=== PATIENT | female | born 1955 | race Caucasian/White ===

== ENCOUNTER → 2018-07-10 07:40 | Outpatient (CLI) | payer OTHER, SELFPAY ==
--- NOTE | 2018-07-10 | DI.US.S_ITS ---
PROCEDURE: US SOFT TISSUE HEAD AND NECK INDICATIONS: LOCALIZED NECK LUMP TECHNIQUE: Real-time scanning was performed of the neck region of interest, with image documentation. COMPARISON: None. FINDINGS: Ill-defined, hypoechoic subcutaneous soft tissue mass visualized corresponding to the palpable left neck abnormality measuring 0.7 x 0.9 x 0.7 cm. Mild peripheral blood flow seen. IMPRESSION: Nonspecific subcutaneous soft tissue mass. Differential includes both benign and malignant etiology. Consider dermatology consultation. Dictated by: Shad SCOTT Interpreted: Eliud Diaz MD on 07/10/2018 at 14:57 Approved by: Eliud Diaz M.D. on 07/10/2018 at 17:54
== END ==
PROVIDERS: PCP Family Medicine; Visit Provider Family Medicine
DX: R22.1 Localized swelling, mass and lump, neck (principal)
CPT/HCPCS: 76536

== ENCOUNTER → 2019-03-19 10:02 | Outpatient (CLI) | payer OTHER, SELFPAY | PROVIDERS: PCP Family Medicine; Referring Provider Podiatrist; Visit Provider Family Medicine | DX: E11.621 Type 2 diabetes mellitus with foot ulcer (principal); L97.521 Non-pressure chronic ulcer of other part of left foot limited to breakdown of skin; E11.40 Type 2 diabetes mellitus with diabetic neuropathy, unspecified; R60.0 Localized edema; Z79.4 Long term (current) use of insulin | CPT/HCPCS: 11042; 99203; 99214 ==

== ENCOUNTER → 2019-03-22 09:26 | Outpatient (CLI) | payer OTHER, SELFPAY | PROVIDERS: PCP Family Medicine; Visit Provider Family Medicine | DX: E11.621 Type 2 diabetes mellitus with foot ulcer (principal); L97.521 Non-pressure chronic ulcer of other part of left foot limited to breakdown of skin; R60.0 Localized edema | CPT/HCPCS: 99212 ==

== ENCOUNTER → 2019-03-29 12:57 | Outpatient (CLI) | payer OTHER, SELFPAY | PROVIDERS: PCP Family Medicine; Referring Provider Podiatrist; Visit Provider Family Medicine | DX: E11.621 Type 2 diabetes mellitus with foot ulcer (principal); L97.521 Non-pressure chronic ulcer of other part of left foot limited to breakdown of skin; R60.0 Localized edema; Z79.4 Long term (current) use of insulin; G89.4 Chronic pain syndrome | CPT/HCPCS: 97597 ==

== ENCOUNTER → 2019-04-05 12:22 | Outpatient (CLI) | payer OTHER, SELFPAY | PROVIDERS: PCP Family Medicine; Referring Provider Family Medicine; Visit Provider Family Medicine | DX: E11.621 Type 2 diabetes mellitus with foot ulcer (principal); L97.521 Non-pressure chronic ulcer of other part of left foot limited to breakdown of skin; Z79.4 Long term (current) use of insulin; G89.4 Chronic pain syndrome | CPT/HCPCS: 97597 ==

== ENCOUNTER → 2019-04-12 09:55 | Outpatient (CLI) | payer OTHER, SELFPAY | PROVIDERS: PCP Family Medicine; Referring Provider Family Medicine; Visit Provider Family Medicine | DX: E11.621 Type 2 diabetes mellitus with foot ulcer (principal); L97.521 Non-pressure chronic ulcer of other part of left foot limited to breakdown of skin; R60.0 Localized edema; Z79.4 Long term (current) use of insulin | CPT/HCPCS: 97597 ==

== ENCOUNTER → 2019-04-19 09:35 | Outpatient (CLI) | payer OTHER, SELFPAY | PROVIDERS: PCP Family Medicine; Referring Provider Podiatrist; Visit Provider Family Medicine | DX: E11.621 Type 2 diabetes mellitus with foot ulcer (principal); L97.511 Non-pressure chronic ulcer of other part of right foot limited to breakdown of skin; E11.40 Type 2 diabetes mellitus with diabetic neuropathy, unspecified; Z79.4 Long term (current) use of insulin | CPT/HCPCS: 99212; 99213 ==

== ENCOUNTER 2022-05-02 12:34 | Emergency (ER) | payer MEDICARE, SELFPAY ==
[2022-05-02 12:44] VITALS: BP 134/78; PULSE 89; RESP 16; TEMP 36.6; O2SAT 97; BMI 36.6
== END 2022-05-02 15:57 | disposition left against medical advice (07) ==
PROVIDERS: Emergency Provider Emergency Medicine; PCP Family Medicine
CPT/HCPCS: 99281

== ENCOUNTER 2022-05-05 08:33 | Emergency (ER) | payer OTHER, SELFPAY ==
[2022-05-05 08:39] VITALS: BP 149/82; PULSE 90; RESP 14; TEMP 36.2; O2SAT 99
--- NOTE | 2022-05-05 11:12 | ED_ITS ---
HPI - Skin/Abscess/Foreign Bdy General Chief complaint: Abdominal Pain Stated complaint: sharp pain RT side Time Seen by Provider: 05/05/22 11:07 Source: patient Mode of arrival: Ambulatory Limitations: no limitations History of Present Illness HPI narrative: Patient complains of painful left flank area with rash. Ongoing since this past Monday. Patient did come here but left because it was too busy and was not seen by a provider. Patient does have history chickenpox as a child. No prior history of shingles. Patient states it marshall and hurts on this left flank area. No urinary complaints. No hematuria or frequency or dysuria. Denies any abdominal pain. Related Data Previous Rx's Medication Instructions Recorded methylprednisolone 4 mg tablets in See Rx Instructions PO .COMPLEX 05/05/22 a dose pack (Medrol (Ruiz)) #21 ea valacyclovir 1 gram tablet 1,000 mg PO TID #21 tabs 05/05/22 Allergies Allergy/AdvReac Type Severity Reaction Status Date / Time No Known Drug Allergies Allergy Verified 05/05/22 08:43 Review of Systems Review of Systems Narrative: GENERAL: negative chills, fatigue, malaise, fever, sweats. HEENT: negative sinus pain, ear pain, sore throat RESPIRATORY: negative dyspnea, cough CARDIOVASCULAR: negative chest pain, palpitations GASTROINTESTINAL: negative nausea, vomiting, abdominal pain : negative dysuria, frequency, hematuria MUSCULOSKELETAL: negative muscle or bony pain SKIN: negative rash, positive skin lesions NEUROLOGIC: negative weakness, numbness ROS Unobtainable: All systems reviewed & are unremarkable except as noted in HPI and below Patient History Medical History Macular degeneration Peripheral neuropathy due to disorder of metabolism Type 2 diabetes mellitus Social History Smoking Status: Former smoker Smoking Status: Former smoker alcohol intake frequency: 0-2 drinks per day Substance Use Type: does not use Exam Narrative Exam Narrative: GENERAL: in no distress, not toxic not dyspneic HEAD: Normocephalic. EYES: Pupils equal round NECK: Trachea midline. CARDIOVASCULAR: Regular rate and rhythm without murmurs RESPIRATORY: Clear to auscultation. Breath sounds equal bilaterally. No wheezes, rales, or rhonchi. GASTROINTESTINAL: Abdomen soft, non-tender BACK: No flank tenderness. NEURO: AOx4. SKIN: Warm and dry, on left lower flank there is area of erythema papular rash. Three grouped lesions. No rash on the abdomen anteriorly. No midline tenderness or step-off. No CVA tenderness. No vesicles. No crepitus. No pain out of proportion to exam. There is mild tenderness to the rash area PSYCH: Not anxious, is cooperative Initial Vital Signs Initial Vital Signs: Vital Signs Temperature 97.1 F L 05/05/22 08:39 Pulse Rate 90 05/05/22 08:39 Respiratory Rate 14 05/05/22 08:39 Blood Pressure 149/82 H 05/05/22 08:39 Pulse Oximetry 99 05/05/22 08:39 Oxygen Delivery Method Room Air 05/05/22 08:39 Course Orders Ordered: Discontinued Medications Ondansetron HCl (Ondansetron 4 Mg/2 Ml Inj) 4 mg IV NOW PRN PRN Reason: Nausea And Vomiting Vital Signs Vital signs: Vital Signs - 8 hr 05/05/22 08:39 Temperature 97.1 F L Pulse Rate 90 Respiratory Rate 14 Blood Pressure 149/82 H Pulse Oximetry 99 Oxygen Delivery Method Room Air MDM - Skin/Abscess/Foreign Bdy MDM Narrative Medical decision making narrative: Patient complains of painful left flank area with rash. Ongoing since this past Monday. Patient did come here but left because it was too busy and was not seen by a provider. Patient does have history chickenpox as a child. No prior history of shingles. Patient states it marshall and hurts on this left flank area. No urinary complaints. No hematuria or frequency or dysuria. Denies any abdominal pain. After history and exam no laboratory studies indicated. MDM CC: Flank pain/rash Complicating co-morbidities: Diabetes Data collected from: Patient Medical records reviewed: Not seen here in the past for this complaint Differential considered: Includes but not limited to shingles/cellulitis/kidney stone/UTI/pyelonephritis Exam documented above, pertinent findings include: Left flank rash Lab Test results independently reviewed as above. Pertinent findings: None indicated EKG normal sinus rhythm normal EKG rate [address] elevation or depression Imaging studies independently reviewed: Not indicated Treatments: Prescription for valacyclovir and Medrol Dosepak Re-evaluations: Reviewed physical exam with patient. No laboratory studies or imaging indicated. Patient agrees with treatment plan. She does have history of chickenpox. As a child. She does have a new provider to follow up with. Return precautions reviewed with her. Prescriptions have been sent to her [facility] to start. Discussion: Appropriate for discharge home. Clinically is shingles. Clinically not UTI pyelonephritis or kidney stone. Rash is apparent on left lower flank. Return precautions reviewed with patient. Prescription sent to her pharmacy to start today. She desires discharge home Diagnosis: Shingles Discharge Plan Departure Patient Disposition: Home Clinical Impression: Shingles Instructions: DI for Shingles Activity Restrictions/Additional Instructions: Please see family doctor next week for re-evaluation. Please do not have any contact with women or anybody on chemotherapy or is immunocompromised. Shingles can be contagious. Please pickling solution maker prescriptions provided for you, antiviral medication as well as steroid. Be sure to check your glucose/sugar levels as steroids can elevate your sugar. Return if worse if any questions or concerns Prescriptions: New valacyclovir 1 gram tablet 1,000 mg PO TID Qty: 21 0RF methylprednisolone [Medrol (Ruiz)] 4 mg tablets,dose pack See Rx Instructions .ROUTE .COMPLEX Qty: 21 0RF Rx Instructions: orally per package directions Referrals: Sergio Mcclain DO [Primary Care Provider] - Stand Alone Forms: Patient Portal/API
[2022-05-05 11:33] VITALS: BP 174/85; PULSE 92; RESP 16; O2SAT 97
== END 2022-05-05 11:35 | disposition home or self-care (01) ==
PROVIDERS: Emergency Provider Emergency Medicine; PCP Family Medicine
DX: B02.9 Zoster without complications (principal); R03.0 Elevated blood-pressure reading, without diagnosis of hypertension
CPT/HCPCS: 93005; 93010; 99281; 99282

== ENCOUNTER 2022-11-24 11:23 | Day surgery (SDC) | payer OTHER, SELFPAY ==
--- NOTE | 2022-11-24 | PATH_ITS ---
[facility] Accession Number: [id number] No. of containers..03 Tissue . 01 Material submitted: . PART A: colon - CECAL POLYP PART B: colon - DESCENDING POLYPS PART C: colon - SIGMOID POLYP . 01 Diagnosis: A. Cecal Polyp: Tubular adenoma. . B. Descending Polyps: Portion of tubular adenoma x1. Superficial portion of colorectal mucosa x1 with a benign lymphoid aggregate. Superficial portion of colorectal mucosa x1 with no significant histomorphologic abnormality. . C. Sigmoid Polyp: Tubular adenoma. MRV 11/28/2022 1431 Local . 01 Electronically signed: . Angelique Fernandez MD, Pathologist NPI- [id number] . 01 Gross description: . Part A: CECAL POLYP: Received in formalin is multiple fragment(s) of wilson, soft tissue measuring 1.0 x 0.5 x 0.2 cm in aggregate submitted entirely in 1 cassette(s) Part B: DESCENDING POLYPS: Received in formalin is multiple fragment(s) of wilson, soft tissue measuring 2.5 x 1.0 x 0.2 cm in aggregate submitted entirely in 1 cassette(s) Part C: SIGMOID POLYP: Received in formalin is 1 fragment(s) of wilson, soft tissue measuring 0.8 x 0.5 x 0.3 cm submitted entirely in 1 cassette(s) /AAY 11/25/2022 0403 Local . 01 Pathologist provided ICD-10: K63.5 . 01 CPT . 102299, 004372, 437063 Specimen Comment: A courtesy copy of this report has been sent to [phone] Performed at: 01 [facility] [address] [place] [address] [address], [place], [place] [id number] MD Jonathan Lindsey MD Phone: [phone]
[2022-11-24 11:47] VITALS: BP 147/91; PULSE 88; RESP 16; TEMP 36.3; O2SAT 96; BMI 35.0
[2022-11-24 12:01] VITALS: BMI 35.0
[2022-11-24] MEDS: LACTATED RINGERS 1,000 ML 150 ML IV (12:02)
--- NOTE | 2022-11-24 12:40 | P.HP_ITS ---
History of Present Illness History of Present Illness Date Patient Seen: 11/24/22 Time Patient Seen: 12:40 Chief complaint: Screening Colonoscopy Narrative: Shantel is a 67 year woman who is here for colonoscopy. Her last 1 was about 5 years ago and she believes no polyps were found. Grandfather had colon cancer [facility] Medical History Macular degeneration Peripheral neuropathy due to disorder of metabolism Type 2 diabetes mellitus Social History household members: none Smoking Status: Former smoker alcohol intake: never Meds Home Medications and Allergies Home Medications Medication Instructions Recorded Confirmed Type atorvastatin 20 mg tablet 20 mg PO DAILY 11/24/22 11/24/22 History empagliflozin 25 mg tablet 12.5 mg PO DAILY 11/24/22 11/24/22 History (Jardiance) famotidine 20 mg tablet 20 mg PO BID 11/24/22 11/24/22 History insulin glargine 100 unit/mL (3 100 unit SUBCUT DAILY 11/24/22 11/24/22 History mL) subcutaneous pen (Lantus Solostar U-100 Insulin) insulin lispro 100 unit/mL 100 sliding scale dose SUBCUT DAILY 11/24/22 11/24/22 History subcutaneous pen (Humalog KwikPen (U-100) Insulin) losartan 100 mg tablet 100 mg PO DAILY 11/24/22 11/24/22 History tramadol 50 mg tablet 50 mg PO Q6H PRN Mild Pain (Scale 11/24/22 11/24/22 History Score 1-4) Allergies Allergy/AdvReac Type Severity Reaction Status Date / Time No Known Drug Allergies Allergy Verified 11/24/22 11:37 Exam Vital Signs (past 8 hours): - 11/24/22 11:47 Temperature 97.4 F L Pulse Rate 88 Respiratory Rate 16 Blood Pressure 147/91 H Pulse Oximetry 96 Oxygen Delivery Method Room Air Oxygen Delivery Method Room Air Const General: No acute distress Resp Effort & Inspection: normal respiratory effort Assessment & Plan Assessment and plan (1) Colon cancer screening: Status: Acute Plan Shantel is a 67 year old woman here for a colonoscopy. We reviewed the risks and benefits and she would like to proceed.
--- NOTE | 2022-11-24 13:55 | PM.OP.COLON ---
Operative Date/Time/Diagnoses Date of procedure: 11/24/22 Time of procedure: 13:56 Pre-op diagnosis: Personal history of colon polyps Post-op diagnosis: same Procedure & Clinicians Study performed: Colonoscopy Same procedure as scheduled: Yes Surgeon: Bryce Anthony Procedure Notes Procedure in detail: Surgeon: Bryce Anthony MD Anesthesia: Tacho Martinez DO Procedure: The patient was brought to the endoscopy suite, placed in left lateral decubitus position. The patient was connected to monitoring devices. A time-out was performed. Sedation was administered. Once the patient was adequately sedated, a digital rectal exam was performed and was normal. The scope was then inserted and advanced to the cecum where the appendiceal orifice was identified and photographed. The scope was then slowly withdrawn over greater than 6 minutes. The mucosa was thoroughly inspected. There was a 5 mm cecal polyp removed with a cold snare. There were 2 5 mm polyps in the descending colon removed with cold snare and sent together. There was a 7 mm sigmoid polyp removed with a cold snare. The scope was retroflexed in the rectum. No other abnormalities were seen. The scope was straightened and removed. The patient was awakened and brought to recovery. Scope withdrawal time: 12 minutes Sedation time: 17 minutes EBL: 5 mL Findings: A 5 mm cecal polyp, 2 5 mm descending polyps and a 7 mm sigmoid polyp Post-procedure Disposition: PACU
[2022-11-24 13:59] VITALS: BP 122/74; PULSE 85; RESP 19; TEMP 36.2; O2SAT 95
[2022-11-24 14:04] VITALS: BP 115/82; PULSE 78; RESP 13; O2SAT 97
[2022-11-24 14:09] VITALS: BP 140/93; PULSE 78; RESP 15; O2SAT 97
[2022-11-24 14:18] VITALS: BP 139/91; PULSE 76; RESP 14; TEMP 36.6; O2SAT 98
== END 2022-11-24 14:30 | disposition home or self-care (01) ==
PROVIDERS: PCP Nurse Practitioner; Referring Provider Surgery; Visit Provider Surgery
PROC: 0DJD8ZZ Inspection of Lower Intestinal Tract, Via Natural or Artificial Opening Endoscopic (ICD-10-PCS; CPT 45378; principal; 2022-11-24 12:45)
DX: Z12.11 Encounter for screening for malignant neoplasm of colon (principal); Z86.010 Personal history of colon polyps; D12.0 Benign neoplasm of cecum; D12.4 Benign neoplasm of descending colon; D12.5 Benign neoplasm of sigmoid colon
CPT/HCPCS: 45385; J2704